=== PATIENT | male | born 1970 | race Two or more races ===

== ENCOUNTER 2021-09-12 11:53 | Emergency (ER) | payer OTHER ==
[~2021-09-12] VITALS: Ht 167.6 cm; Wt 82.0 kg
[2021-09-12] MEDS ORDERED: BACITRACIN ZINC OINT UDPKT TOP ONE (12:15)
[2021-09-12] MEDS ORDERED: TETANUS, DIPHTHERIA, PERTUSSIS VAC/PF 0.5ML (>10YR OLD) IM ONE (12:15)
[2021-09-12] MEDS ORDERED: ACETAMINOPHEN 325MG TABLET PO ONE (12:15)
[2021-09-12] MEDS ORDERED: TOPUD MT (13:06)
[2021-09-12 13:26] VITALS: BP 119/67
== END 2021-09-12 13:29 | disposition home or self-care (01) ==
LOC: ER 13:14
DX: S09.8XXA Other specified injuries of head, initial encounter (principal); W18.39XA Other fall on same level, initial encounter; Y93.89 Activity, other specified; Y92.89 Other specified places as the place of occurrence of the external cause; Y99.8 Other external cause status
CPT/HCPCS: 90471; 90715; 99284